=== PATIENT | female | born 1950 | race Caucasian/White ===

== ENCOUNTER → 2018-08-02 | Outpatient (CLI) | payer MEDICARE ==
--- NOTE | 2018-08-02 12:39 | BD ---
EXAMINATION TYPE: Axial Bone Density DATE OF EXAM: 08/02/2018 COMPARISON: NONE CLINICAL HISTORY: screening osteoporosis Height: 5'1 Weight: 228 FRAX RISK QUESTIONS: History of Fracture in Adulthood: y Secondary Osteoporosis: RISK FACTORS HISTORY OF: Diet low in dairy products/other sources of calcium: y Postmenopausal woman: y MEDICATIONS: Additional Medications: blood pressure Additional History: EXAM MEASUREMENTS: Bone mineral densitometry was performed using the [employer] System. Bone mineral density as measured about the Lumbar spine is: ----- L1-L4(G/cm2): 1.145 T Score Values are as follows: ----- L2: -0.5 ----- L3: 0.4 ----- L4: 0.0 ----- L1-L4:-0.3 Bone mineral density about the R hip (g/cm2): 0.786 Bone mineral density about the L hip (g/cm2): 0.795 T Score values are as follows: -----R Neck: -1.8 -----L Neck: -1.7 -----R Total: -1.2 -----L Total: -1.0 IMPRESSION: Osteopenia (T Score between -2.5 and -1) at femoral neck level in both hips. There is slightly increased risk of fracture and the patient may be considered for treatment. Re-Screen 2-5 years. NOTE: T-SCORE=SD OF THE YOUNG ADULT MEAN.
--- NOTE | 2018-08-04 09:10 | MM ---
Reason for exam: screening (asymptomatic). Last mammogram was performed 5 years and 7 months ago. History: Patient is postmenopausal. Physical Findings: A clinical breast exam by your physician is recommended on an annual basis and results should be correlated with mammographic findings. MG 3D Screening Mammo W/Cad Bilateral CC and MLO view(s) were taken. Prior study comparison: January 17, 2013, mammogram, performed at [facility]. There are scattered fibroglandular densities. Regional round calcifications left upper outer quadrant minimally increased. No suspicious clustered calcifications. No significant changes when compared with prior studies. ASSESSMENT: Benign, BI-RAD 2 RECOMMENDATION: Routine screening mammogram of both breasts in 1 year.
== END | disposition home or self-care (01) ==
LOC: RADMAMWWP 10:18
PROVIDERS: ATTEND Family Medicine
DX: Z12.31 Encounter for screening mammogram for malignant neoplasm of breast (principal); Z13.820 Encounter for screening for osteoporosis; M85.851 Other specified disorders of bone density and structure, right thigh; M85.852 Other specified disorders of bone density and structure, left thigh
CPT/HCPCS: 77063; 77067; 77080

== ENCOUNTER → 2019-04-13 | Outpatient (CLI) | payer MEDICARE ==
--- NOTE | 2019-04-13 15:54 | XR ---
EXAMINATION TYPE: XR AC joint BILAT DATE OF EXAM: 04/13/2019 COMPARISON: NONE HISTORY: M25.511. Right shoulder pain TECHNIQUE: Nonweightbearing and weightbearing views of the AC joints are submitted bilaterally. FINDINGS: AC joints are symmetric with weightbearing and nonweightbearing. No fracture or subluxation seen. No osseous lesions evident. Upper lungs appear to be clear. IMPRESSION: Unremarkable study.
== END | disposition home or self-care (01) ==
LOC: RADXRMAIN 10:21
PROVIDERS: ATTEND Family Medicine
DX: M25.511 Pain in right shoulder (principal)
CPT/HCPCS: 73050

== ENCOUNTER → 2019-04-25 | Outpatient (CLI) | payer MEDICARE ==
--- NOTE | 2019-04-25 15:31 | US ---
EXAMINATION TYPE: US extremity nonvasc mass RT DATE OF EXAM: 04/25/2019 COMPARISON: NONE CLINICAL HISTORY: M25.5 PAIN IN LIMB. Pt states pain/lump right medial arm near antecubital fossa Right medial arm scanned where pt has pain and palpable near antecubital fossa, no fluid collection s were visualized Please note that muscle or tendon tear scan could not be performed at this facility Patent compressible basilic vein. Normal subcutaneous and muscular tissue on images saved. IMPRESSION: As above.
== END | disposition home or self-care (01) ==
LOC: RADUSWWP 14:22
PROVIDERS: ATTEND Family Medicine
DX: M25.511 Pain in right shoulder (principal); Z88.5 Allergy status to narcotic agent; Z88.6 Allergy status to analgesic agent

== ENCOUNTER 2019-04-30 11:37 | Emergency (ER) | payer MEDICARE ==
[2019-04-30 11:54] VITALS: TEMP 98.1
[2019-04-30 12:04] VITALS: RESP 18
[2019-04-30] MEDS ORDERED: IPRATROPIUM-ALBUTEROL 3 ML NEB INHALATION STA (12:23)
--- NOTE | 2019-04-30 12:26 | ED ---
General Adult HPI - General Chief complaint: Upper Respiratory Infection Stated complaint: SOB Time Seen by Provider: 04/30/19 12:18 Source: patient, family, RN notes reviewed Mode of arrival: ambulatory Limitations: no limitations - History of Present Illness Initial comments: Patient is a pleasant 69-year-old female presenting to the emergency department with difficulty in breathing. Onset of symptoms was 6 days ago. Patient does have cough without productive sputum. Patient feels short of breath. No leg pain or leg swelling. No history of similar symptoms previously. No history of any lung disease such as COPD or asthma. Patient did see her doctor prior to arrival and was recommended come to the emergency department. Symptoms do worse n with exertion. - Related Data Home Medications Medication Instructions Recorded Confirmed Atenolol [Tenormin] 25 mg PO DAILY 04/30/19 04/30/19 Hydrochlorothiazide [Hydrodiuril] 12.5 mg PO DAILY 04/30/19 04/30/19 Phentermine HCl [Adipex-P] 37.5 mg PO DAILY 04/30/19 04/30/19 Previous Rx's Medication Instructions Recorded Albuterol Inhaler [Ventolin Hfa 2 puff INHALATION Q4HR PRN #1 04/30/19 Inhaler] inhaler Azithromycin [Zithromax Z-pack] 250 mg PO DIRECTED #6 tab 04/30/19 predniSONE 20 mg PO BID #10 tab 04/30/19 Allergies Allergy/AdvReac Type Severity Reaction Status Date / Time codeine Allergy Rash/Hives Verified 04/30/19 13:51 naproxen [From Naprosyn] Allergy Rash/Hives Verified 04/30/19 13:51 Review of Systems ROS Statement: Those systems with pertinent positive or pertinent negative responses have been documented in the HPI. ROS Other: All systems not noted in ROS Statement are negative. Constitutional: Reports: fever (Patient believes she may have had a fever at some point.) Eyes: Denies: eye pain ENT: Denies: ear pain Respiratory: Reports: as per HPI, cough, dyspnea Cardiovascular: Denies: chest pain Endocrine: Reports: fatigue Gastrointestinal: Denies: abdominal pain Genitourinary: Denies: dysuria Musculoskeletal: Denies: back pain Skin: Denies: rash Neurological: Denies: weakness Past Medical History Past Medical History: Hypertension History of Any Multi-Drug Resistant Organisms: None Reported Past Surgical History: Orthopedic Surgery Additional Past Surgical History / Comment(s): EYE SURGERY, R arm, L ankle Past Psychological History: No Psychological Hx Reported Smoking Status: Never smoker Past Alcohol Use History: Occasional Past Drug Use History: None Reported General Exam Limitations: no limitations General appearance: alert Head exam: Present: normocephalic Eye exam: Present: normal appearance, PERRL ENT exam: Present: normal oropharynx Neck exam: Present: normal inspection Respiratory exam: Present: wheezes, rales Cardiovascular Exam: Present: regular rate, normal rhythm Expanded Peripheral pulses: 2+: Radial (R), Radial (L), Dorsalis Pedis (R), Dorsalis Pedis (L) GI/Abdominal exam: Present: soft. Absent: tenderness Extremities exam: Present: normal inspection. Absent: pedal edema, calf tenderness Neurological exam: Present: alert Psychiatric exam: Present: normal affect, normal mood Skin exam: Present: normal color Course Vital Signs 04/30/19 04/30/19 04/30/19 11:49 12:01 12:03 Temperature 98.1 F Pulse Rate 74 72 Respiratory 18 22 18 Rate Blood Pressure 140/81 142/102 O2 Sat by Pulse 94 L 94 L Oximetry 04/30/19 04/30/19 04/30/19 12:33 12:38 13:02 Temperature Pulse Rate 70 76 78 Respiratory 18 Rate Blood Pressure 136/77 O2 Sat by Pulse 96 Oximetry 04/30/19 13:45 Temperature Pulse Rate 78 Respiratory 18 Rate Blood Pressure 133/77 O2 Sat by Pulse 92 L Oximetry EKG Findings - EKG Comments: EKG Findings:: Normal sinus rhythm 68. HI 122. QRS 92. QT 432. QTC 459. Left axis. Normal QRS. Nonspecific T waves. Medical Decision Making - Medical Decision Making Patient reevaluated and significantly improved. Patient still has some wheezing however states she is breathing much better and requests discharge home. Pulse ox 96% on room air. Vital signs stable. Patient states previously with this she received antibiotics and inhaler and steroids and did much better. Patient is agreeable to close follow-up with primary care physician. - Lab Data Result diagrams: 04/30/19 13:21 04/30/19 13:21 Lab Results 04/30/19 04/30/19 04/30/19 Range/Units 13:21 13:21 13:21 WBC 9.4 (3.8-10.6) k/uL RBC 4.82 (3.80-5.40) m/uL Hgb 15.1 (11.4-16.0) gm/dL Hct 45.2 (34.0-46.0) % MCV 93.7 (80.0-100.0) fL MCH 31.3 (25.0-35.0) pg MCHC 33.4 (31.0-37.0) g/dL RDW 12.1 (11.5-15.5) % Plt Count 217 (150-450) k/uL Neutrophils % 72 % Lymphocytes % 17 % Monocytes % 4 % Eosinophils % 2 % Basophils % 1 % Neutrophils # 6.8 (1.3-7.7) k/uL Lymphocytes # 1.6 (1.0-4.8) k/uL Monocytes # 0.4 (0-1.0) k/uL Eosinophils # 0.2 (0-0.7) k/uL Basophils # 0.1 (0-0.2) k/uL PT 10.1 (9.0-12.0) sec INR 0.9 (<1.2) APTT 24.4 (22.0-30.0) sec D-Dimer (<0.60) mg/L FEU Sodium 137 (137-145) mmol/L Potassium 3.6 (3.5-5.1) mmol/L Chloride 98 (98-107) mmol/L Carbon Dioxide 28 (22-30) mmol/L Anion Gap 11 mmol/L BUN 11 (7-17) mg/dL Creatinine 0.84 (0.52-1.04) mg/dL Est GFR (CKD-EPI)AfAm 83 (>60 ml/min/1.73 sqM) Est GFR (CKD-EPI)NonAf 72 (>60 ml/min/1.73 sqM) Glucose 131 H (74-99) mg/dL Calcium 9.3 (8.4-10.2) mg/dL Total Bilirubin 0.7 (0.2-1.3) mg/dL AST 22 (14-36) U/L ALT 19 (9-52) U/L Alkaline Phosphatase 93 (38-126) U/L Troponin I (0.000-0.034) ng/mL NT-Pro-B Natriuret Pep pg/mL Total Protein 7.1 (6.3-8.2) g/dL Albumin 4.1 (3.5-5.0) g/dL 04/30/19 04/30/19 04/30/19 Range/Units 13:21 13:21 13:21 WBC (3.8-10.6) k/uL RBC (3.80-5.40) m/uL Hgb (11.4-16.0) gm/dL Hct (34.0-46.0) % MCV (80.0-100.0) fL MCH (25.0-35.0) pg MCHC (31.0-37.0) g/dL RDW (11.5-15.5) % Plt Count (150-450) k/uL Neutrophils % % Lymphocytes % % Monocytes % % Eosinophils % % Basophils % % Neutrophils # (1.3-7.7) k/uL Lymphocytes # (1.0-4.8) k/uL Monocytes # (0-1.0) k/uL Eosinophils # (0-0.7) k/uL Basophils # (0-0.2) k/uL PT (9.0-12.0) sec INR (<1.2) APTT (22.0-30.0) sec D-Dimer 0.53 (<0.60) mg/L FEU Sodium (137-145) mmol/L Potassium (3.5-5.1) mmol/L Chloride (98-107) mmol/L Carbon Dioxide (22-30) mmol/L Anion Gap mmol/L BUN (7-17) mg/dL Creatinine (0.52-1.04) mg/dL Est GFR (CKD-EPI)AfAm (>60 ml/min/1.73 sqM) Est GFR (CKD-EPI)NonAf (>60 ml/min/1.73 sqM) Glucose (74-99) mg/dL Calcium (8.4-10.2) mg/dL Total Bilirubin (0.2-1.3) mg/dL AST (14-36) U/L ALT (9-52) U/L Alkaline Phosphatase (38-126) U/L Troponin I <0.012 (0.000-0.034) ng/mL NT-Pro-B Natriuret Pep 478 pg/mL Total Protein (6.3-8.2) g/dL Albumin (3.5-5.0) g/dL - Radiology Data Radiology results: image reviewed (Chest x-ray concerning for bronchitis) Disposition Clinical Impression: Bronchitis Disposition: HOME SELF-CARE Condition: Stable Additional Instructions: Please follow-up with primary care physician in the next 24-48 hours for recheck. Return for any difficulty in breathing, fevers, worsening symptoms or any other concerns Prescription sent to [facility] pharmacy Prescriptions: predniSONE 20 mg PO BID #10 tab Albuterol Inhaler [Ventolin Hfa Inhaler] 2 puff INHALATION Q4HR PRN #1 inhaler PRN Reason: Dyspnea Azithromycin [Zithromax Z-pack] 250 mg PO DIRECTED #6 tab Is patient prescribed a controlled substance at d/c from ED?: No Referrals: Kian Salgado MD [Primary Care Provider] - 1-2 days Time of Disposition: 14:45
[2019-04-30 13:03] VITALS: PULSE 78
--- NOTE | 2019-04-30 13:13 | XR ---
EXAMINATION TYPE: XR chest 2V DATE OF EXAM: 04/30/2019 COMPARISON: NONE HISTORY: Difficulty breathing. Cough and wheeze TECHNIQUE: Frontal and lateral views of the chest are obtained. FINDINGS: Diffuse peribronchial cuffing. Patchy left basilar opacity is seen on the frontal view only and does not persist on the lateral. There is no focal air space opacity, pleural effusion, or pneu mothorax seen. The cardiac silhouette size is upper limits of normal. The osseous structures are i ntact. IMPRESSION: Peribronchial cuffing suggests bronchitis. Patchy left basilar opacity on the frontal vi ew only suggests atelectasis.
[2019-04-30 13:38] LABS: Basophils # (A) 0.1 k/uL (0-0.2); Basophils % (A) 1 %; Eosinophils # (A) 0.2 k/uL (0-0.7); Eosinophils % (A) 2 %; HCT 45.2 % (34.0-46.0); HGB 15.1 gm/dL (11.4-16.0); Lymphocytes # (A) 1.6 k/uL (1.0-4.8); Lymphocytes % (A) 17 %; MCH 31.3 pg (25.0-35.0); MCHC 33.4 g/dL (31.0-37.0); MCV 93.7 fL (80.0-100.0); Mean Platelet Volume 7.5; Monocytes # (A) 0.4 k/uL (0-1.0); Monocytes % (A) 4 %; Neutrophils # (A) 6.8 k/uL (1.3-7.7); Neutrophils % (A) 72 %; Platelet Count 217 k/uL (150-450); RBC 4.82 m/uL (3.80-5.40); RDW 12.1 % (11.5-15.5); WBC 9.4 k/uL (3.8-10.6)
[2019-04-30 13:46] VITALS: BP 133/77
[2019-04-30 13:46] LABS: Albumin 4.1 g/dL (3.5-5.0); Calcium 9.3 mg/dL (8.4-10.2); Potassium 3.6 mmol/L (3.5-5.1); Total Bilirubin 0.7 mg/dL (0.2-1.3); Total Protein 7.1 g/dL (6.3-8.2)
[2019-04-30 13:56] LABS: INR 0.9 (<1.2); Partial Thromboplastin Time 24.4 sec (22.0-30.0); Prothrombin Time 10.1 sec (9.0-12.0)
== END 2019-04-30 14:56 | disposition home or self-care (01) ==
LOC: EC 11:37
DX: J40 Bronchitis, not specified as acute or chronic (principal); I10 Essential (primary) hypertension; Z88.5 Allergy status to narcotic agent; Z88.6 Allergy status to analgesic agent; Z79.899 Other long term (current) drug therapy
CPT/HCPCS: 36415; 71046; 80053; 83880; 84484; 85025; 85379; 85610; 85730; 93005; 94640; 99285

== ENCOUNTER → 2019-07-20 | Outpatient (CLI) | payer MEDICARE ==
--- NOTE | 2019-07-20 11:12 | XR ---
EXAMINATION TYPE: XR chest 2V DATE OF EXAM: 07/20/2019 COMPARISON: 04/30/19 HISTORY: Shortness of breath TECHNIQUE: Frontal and lateral views of the chest are obtained. FINDINGS: Scattered senescent parenchymal changes noted. Hyperinflation compatible with COPD. No evidence for infiltrate. No evidence for atelectasis. Heart size is stable. Mediastinal structures are stable and grossly unremarkable. No evidence for hilar prominence. Degenerative changes dorsal spine. IMPRESSION: 1. No evidence for acute pulmonary disease.
== END | disposition home or self-care (01) ==
LOC: RADXRMAIN 10:47
PROVIDERS: ATTEND Family Medicine
DX: R05 Cough (principal); R06.02 Shortness of breath; R50.9 Fever, unspecified
CPT/HCPCS: 71046; 87502

== ENCOUNTER → 2020-07-28 | Outpatient (CLI) | payer MEDICARE ==
--- NOTE | 2020-07-28 14:47 | XR ---
EXAMINATION TYPE: XR chest 2V DATE OF EXAM: 07/28/2020 COMPARISON: Chest x-ray July 20, 2019. HISTORY: Cough for one year. TECHNIQUE: Frontal and lateral views of the chest are obtained. FINDINGS: There is some chronic parenchymal change without suspicious new focal air space opacity, p leural effusion, or pneumothorax seen. The cardiac silhouette size is stable and upper limits of nor mal. The osseous structures are intact. IMPRESSION: No new acute pulmonary process. No significant change from prior.
== END ==
LOC: RADXRMAIN 13:27
PROVIDERS: ATTEND Otolaryngology
DX: R05 Cough (principal)
CPT/HCPCS: 71046

== ENCOUNTER → 2020-09-09 | Outpatient (CLI) | payer MEDICARE ==
--- NOTE | 2020-09-10 10:05 | MM ---
Reason for exam: screening (asymptomatic). Last mammogram was performed 2 years and 1 month ago. History: Patient is postmenopausal. Physical Findings: A clinical breast exam by your physician is recommended on an annual basis and results should be correlated with mammographic findings. MG 3D Screening Mammo W/Cad Bilateral CC and MLO view(s) were taken. Prior study comparison: August 02, 2018, bilateral MG 3d screening mammo w/cad. There are scattered fibroglandular densities. There are benign appearing round calcifications bilaterally. There is grouped distinct calcifications in the left breast middle posterior depth upper outer quadrant on CC 25/59 and MLO 30/71. This finding is changed when compared with previous exams. ASSESSMENT: Incomplete: need additional imaging evaluation, BI-RAD 0 RECOMMENDATION: Special view mammogram of the left breast. [facility] will attempt to contact patient to return for supplemental views.
== END | disposition home or self-care (01) ==
LOC: RADMAMWWP 10:54
PROVIDERS: ATTEND Family Medicine
DX: Z12.31 Encounter for screening mammogram for malignant neoplasm of breast (principal); Z78.0 Asymptomatic menopausal state
CPT/HCPCS: 77063; 77067

== ENCOUNTER → 2020-09-11 | Outpatient (CLI) | payer MEDICARE ==
--- NOTE | 2020-09-11 10:59 | MM ---
Reason for exam: additional evaluation requested from abnormal screening. Last mammogram was performed less than 1 month ago. History: Patient is postmenopausal. Physical Findings: Nurse did not find any significant physical abnormalities on exam. MG 3D Work Up W/Cad LT CC with magnification, LM with magnification, and LM view(s) were taken of the left breast. Prior study comparison: September 09, 2020, bilateral MG 3d screening mammo w/cad. August 02, 2018, bilateral MG 3d screening mammo w/cad. There are scattered fibroglandular densities. Finding: There are grouped/clustered, fine calcifications in the upper outer quadrant, middle position of the left breast. These fine calcifications may be increasing from comparison. No significant changes in finding since August 02, 2018. These results were verbally communicated with the patient and result sheet given to the patient on 09/11/20. ASSESSMENT: Suspicious, BI-RAD 4 RECOMMENDATION: Stereotactic core biopsy of the left breast. Called Dr. Moreno's office with mammographic findings and has scheduled an appointment for the patient for 10/29/20 at 4:[address] Diaz. Biopsy scheduled for 09/29/20 at 8:00. PRELIMINARY REPORT CALLED AND FAXED TO DR. DIAZ ON 09/11/20.
== END | disposition home or self-care (01) ==
LOC: RADMAMWWP 08:55
PROVIDERS: ATTEND Family Medicine
DX: R92.1 Mammographic calcification found on diagnostic imaging of breast (principal)
CPT/HCPCS: 77065; G0279; 77061

== ENCOUNTER → 2020-09-29 | Day surgery (SDC) | payer MEDICARE ==
[2020-09-29 07:16] VITALS: RESP 16
[2020-09-29 09:03] VITALS: BP 136/72; PULSE 87; TEMP 97.7
--- NOTE | 2020-09-29 09:35 | MM ---
EXAMINATION TYPE: MG stereo VAD BX LT DATE OF EXAM: 09/29/2020 COMPARISON: 09/11/2020, 09/09/2020, 08/02/2018 CLINICAL HISTORY: Request for calcifications biopsied within the left breast upper outer quadrant TECHNIQUE: Stereotactic guided core biopsy of left breast. FINDINGS: The procedure of stereotactic guided core biopsy was explained to the patient. Benefits, alternatives, and risks were discussed. An informed consent was then obtained. The [facility] pathway for biopsy was chosen. Shortness pathway was lateral approach. I performed the localization, then surgeon, Dr. Delarosa performed the remainder of the procedure. A vacuum assisted biopsy gun was used to obtain multiple core samples. The patient tolerated the procedure well without any immediate complication. The patient was kept in the radiology department for short stay after the procedure and then discharged home in stable condition. Targeted calcifications are identified in specimen mammogram. Post biopsy mammogram shows the clip to appear in satisfactory position relative to the targeted area of concern on the preprocedure images. IMPRESSION: SUCCESSFUL, UNCOMPLICATED STEREOTACTIC GUIDED CORE BIOPSY OF AREA OF CONCERN IN THE left BREAST, FULL PATHOLOGY RESULTS TO FOLLOW. Pathology Results: Benign LEFT BREAST, CORE BIOPSY: Focal fibroadenomatoid stromal hyperplasia with microcalcification and focal columnar cell change. Recommendation Follow up mammogram of the left breast in 6 months. FAIZA
== END ==
LOC: RADMAMWWP 07:02
PROVIDERS: ATTEND Surgery
DX: D24.2 Benign neoplasm of left breast (principal); N62 Hypertrophy of breast; R92.0 Mammographic microcalcification found on diagnostic imaging of breast; R92.8 Other abnormal and inconclusive findings on diagnostic imaging of breast; Z88.6 Allergy status to analgesic agent; Z88.5 Allergy status to narcotic agent
CPT/HCPCS: 88305; 19081; A4648; J2001

== ENCOUNTER → 2021-04-02 | Outpatient (CLI) | payer MEDICARE ==
--- NOTE | 2021-04-02 11:42 | MM ---
Reason for exam: follow-up at short interval from prior study. Last mammogram was performed 7 months ago. History: Patient is postmenopausal. Benign MG stereo VAD BX LT of the left breast, September 29, 2020. Physical Findings: Nurse did not find any significant physical abnormalities on exam. MG 3D Diag Mammo W/Cad LT CC and MLO view(s) were taken of the left breast. Prior study comparison: September 11, 2020, left breast MG 3d work up w/cad LT. September 09, 2020, bilateral MG 3d screening mammo w/cad. August 02, 2018, bilateral MG 3d screening mammo w/cad. There are scattered fibroglandular densities. Previous mammotome biopsy in the left breast. There is chronic nodularity in the left breast. No significant new findings when compared with previous films. These results were verbally communicated with the patient and result sheet given to the patient on 04/02/21. ASSESSMENT: Benign, BI-RAD 2 RECOMMENDATION: Return to routine screening mammogram schedule for both breasts. Back on schedule for August 2021.
== END | disposition home or self-care (01) ==
LOC: RADMAMWWP 11:00
PROVIDERS: ATTEND Surgery
DX: N64.89 Other specified disorders of breast (principal); Z78.0 Asymptomatic menopausal state
CPT/HCPCS: 77065; G0279; 77061

== ENCOUNTER → 2022-04-09 | Outpatient (CLI) | payer MEDICARE ==
--- NOTE | 2022-04-09 12:32 | BD ---
EXAMINATION TYPE: Axial Bone Density DATE OF EXAM: 04/09/2022 COMPARISON: PREVIOUS STUDY FROM 08/02/2018 NOT AVAILABLE CLINICAL HISTORY: 71 years year old Female. ICD-10 CODE: Z78.0 MENOPAUSAL STATE Height: 60.5 IN Weight: 214 LBS FRAX RISK QUESTIONS: Family History (Parent hip fracture): YES MOTHER History of Fracture in Adulthood: YES CERVICAL AGE 40 RISK FACTORS HISTORY OF: Active: YES Diet low in dairy products/other sources of calcium: YES Postmenopausal woman: AGE 49 Lost more than 2 inches in height since high school: YES 3" MEDICATIONS: Additional Medications: METHOTREXATE, FOLIC ACID, BLOOD PRESSURE MEDS EXAM MEASUREMENTS: Bone mineral densitometry was performed using the [employer] System. Bone mineral density as measured about the Lumbar spine is: ----- L1-L4(G/cm2): 1.174 T Score Values are as follows: ----- L1: 0.8 ----- L2: 0.0 ----- L3: -0.9 ----- L4: -0.1 ----- L1-L4: 0.0 Bone mineral density PREVIOUS STUDY FROM 08/02/2018 NOT AVAILABLE Bone mineral density about the R hip (g/cm2): 0.726 Bone mineral density about the L hip (g/cm2): 0.720 T Score values are as follows: -----R Neck: -2.2 -----L Neck: -2.3 -----R Total: -1.8 -----L Total: -1.8 Bone mineral density PREVIOUS STUDY FROM 08/02/2018 NOT AVAILABLE FRAX%s: The graph provided illustrates a 29.2 chance for a major osteoporotic fx and a 9.5 chance for the hips probability for fx in 10 years time. IMPRESSION: Osteopenia (T Score between -2.5 and -1). There is slightly increased risk of fracture and the patient may be considered for treatment. Re-Screen 2-5 years. NOTE: T-SCORE=SD OF THE YOUNG ADULT MEAN.
--- NOTE | 2022-04-12 10:16 | MM ---
Reason for Exam: Screening (asymptomatic). Last mammogram was performed 1 year(s) and 7 month(s) ago. Patient History: Menarche at age 13. First Full-Term at age 22. Left ovary removed at age 37. Postmenopausal. 09/29/2020, Benign Core Biopsy on the left side. Risk Values: Skylar 5 year model risk: 1.8%. NCI Lifetime model risk: 5.3%. Prior Study Comparison: 09/09/2020 Bilateral Screening Mammogram, [facility]. 09/11/2020 Left Diagnostic Mammogram, [facility]. 04/02/2021 Left Diagnostic Mammogram, [facility]. Tissue Density: There are scattered fibroglandular densities. Findings: Analyzed By CAD. In the biopsy clip left breast redemonstrated. There are scattered tiny benign-appearing round calcifications bilaterally redemonstrated. Benign-appearing bilateral axillary lymph nodes are noted. There is no suspicious new group of microcalcifications or new suspicious mass in either breast. Overall Assessment: Benign, BI-RAD 2 Management: Screening Mammogram of both breasts in 1 year. A clinical breast exam by your physician is recommended on an annual basis and results should be correlated with mammographic findings. Electronically signed and approved by: Devonte Reeves M.D.
== END | disposition home or self-care (01) ==
LOC: RADMAMWWP 09:25
PROVIDERS: ATTEND Family Medicine
DX: Z12.31 Encounter for screening mammogram for malignant neoplasm of breast (principal); M85.89 Other specified disorders of bone density and structure, multiple sites; Z78.0 Asymptomatic menopausal state; Z90.721 Acquired absence of ovaries, unilateral
CPT/HCPCS: 77063; 77067; 77080

== ENCOUNTER → 2023-07-06 | Outpatient (CLI) | payer MEDICARE ==
[2023-07-06 14:44] LABS: Partial Thromboplastin Time 23.8 sec (22.0-30.0)
[2023-07-06 17:13] LABS: INR 0.9 (<1.2); Prothrombin Time 10.4 sec (10.0-12.5)
[2023-07-07 02:39] LABS: HCT 42.3 % (37.2-46.3); HGB 13.5 g/dL (12.0-15.0); MCH 34.1 pg (27.0-32.0); MCHC 31.9 g/dL (32.0-37.0); MCV 106.8 FL (80.0-97.0); Mean Platelet Volume 11.9 FL (9.5-12.2); NRBC Per 100 WBC 0 X 10*3/uL (0.00-0.01); Platelet Count 200 X 10*3/uL (140-440); RBC 3.96 X 10*6/uL (4.10-5.20); RDW 13.2 % (11.5-14.5); WBC 8.15 X 10*3/uL (4.50-10.00)
[2023-07-07 03:18] LABS: ALT 16 U/L (8-44); AST 24 U/L (13-35); Albumin/Globulin Ratio 1.82 Ratio (1.60-3.17); Alkaline Phosphatase 79 U/L (41-126); Blood Urea Nitrogen 15.3 mg/dL (9.0-27.0); Carbon Dioxide 26.6 mmol/L (21.6-31.8); Chloride 102 mmol/L (96-109); Globulin 2.2 g/dL (1.6-3.3); Glucose 127 mg/dL (70-110); Potassium 4.4 mmol/L (3.5-5.5); Sodium 137 mmol/L (135-145); Total Bilirubin 0.5 mg/dL (0.3-1.2); Total Protein 6.2 g/dL (6.2-8.2)
== END | disposition home or self-care (01) ==
LOC: LABPAT 14:12
PROVIDERS: ATTEND Orthopaedic Surgery Sports Medicine
DX: Z01.812 Encounter for preprocedural laboratory examination (principal); Z22.322 Carrier or suspected carrier of Methicillin resistant Staphylococcus aureus; M17.11 Unilateral primary osteoarthritis, right knee
CPT/HCPCS: 36415; 80053; 85027; 85610; 85730; 87070

== ENCOUNTER → 2023-08-04 | Outpatient (CLI) | payer MEDICARE ==
[2023-08-04 12:48] LABS: INR 0.9 (<1.2); Partial Thromboplastin Time 23.6 sec (22.0-30.0); Prothrombin Time 10.3 sec (10.0-12.5)
[2023-08-04 16:09] LABS: ALT 9 U/L (8-44); AST 17 U/L (13-35); Albumin/Globulin Ratio 1.67 Ratio (1.60-3.17); Alkaline Phosphatase 98 U/L (41-126); BUN/Creat Ratio 17.38 Ratio (12.00-20.00); Blood Urea Nitrogen 13.9 mg/dL (9.0-27.0); Calcium 9.7 mg/dL (8.7-10.3); Carbon Dioxide 28.4 mmol/L (21.6-31.8); Chloride 105 mmol/L (96-109); Globulin 2.4 g/dL (1.6-3.3); Glucose 107 mg/dL (70-110); Potassium 4.8 mmol/L (3.5-5.5); Sodium 143 mmol/L (135-145); Total Bilirubin 0.6 mg/dL (0.3-1.2); Total Protein 6.4 g/dL (6.2-8.2)
[2023-08-04 17:02] LABS: HCT 43.7 % (37.2-46.3); HGB 13.8 g/dL (12.0-15.0); MCH 32.7 pg (27.0-32.0); MCHC 31.6 g/dL (32.0-37.0); MCV 103.6 FL (80.0-97.0); Mean Platelet Volume 12.7 FL (9.5-12.2); NRBC Per 100 WBC 0 X 10*3/uL (0.00-0.01); Platelet Count 191 X 10*3/uL (140-440); RBC 4.22 X 10*6/uL (4.10-5.20); RDW 13.1 % (11.5-14.5); WBC 10.81 X 10*3/uL (4.50-10.00)
== END | disposition home or self-care (01) ==
LOC: LABPAT 11:30
PROVIDERS: ATTEND Orthopaedic Surgery Sports Medicine
DX: Z01.812 Encounter for preprocedural laboratory examination (principal); Z22.322 Carrier or suspected carrier of Methicillin resistant Staphylococcus aureus; M17.11 Unilateral primary osteoarthritis, right knee
CPT/HCPCS: 36415; 80053; 85027; 85610; 85730; 87070

== ENCOUNTER 2023-08-18 05:41 | Observation (INO) | payer MEDICARE ==
[2023-08-15 11:09] VITALS: BMI 38.4
[~2023-08-18 05:41] MED LIST: MELOXICAM 7.5 MG TAB PO PRN; TRANEXAMIC 1,000 MG/100ML-NACL 1,000 MG in SALINE 1 100ML.BAG IVPB PRN
[2023-08-18] MEDS: LACTATED RINGERS 1,000 ML IV ONE ×2 (05:58→08:04)
[2023-08-18] MEDS: GABAPENTIN 300 MG CAP PO PRN (06:30)
[2023-08-18] MEDS: ACETAMINOPHEN TAB 500 MG TAB PO PRN (06:30)
[2023-08-18] MEDS: ONDANSETRON 4 MG/2 ML VIAL IVP PRN ×2 (06:30→20:18)
[2023-08-18] MEDS: DEXAMETHASONE SOD PHOSPHATE 4 MG/ML 1 ML VIAL IVP ONE (06:30)
[2023-08-18] MEDS: MIDAZOLAM 2 MG/2 ML VIAL IVP ONE (07:00)
[2023-08-18] MEDS: fentaNYL (PF) 50 MCG/ML 2 ML AMP IVP ONE (07:00)
[2023-08-18] MEDS ORDERED: TRANEXAMIC 1,000 MG/100ML-NACL PREMIX BAG ONE (07:13)
[2023-08-18] MEDS ORDERED: MIDAZOLAM 2 MG/2 ML VIAL ONE (07:13)
[2023-08-18] MEDS ORDERED: SODIUM CHLORIDE 0.9% (PF) 10 ML VIAL ONE (07:13)
[2023-08-18] MEDS ORDERED: ROPIVACAINE 5 MG/ML 30 ML VIAL ONE (07:13)
[2023-08-18] MEDS ORDERED: ePHEDrine 50 MG/ML 1 ML VIAL ONE (07:13)
[2023-08-18] MEDS ORDERED: PROPOFOL 10 MG/ML 20 ML VIAL IV ONE (07:13)
[2023-08-18] MEDS ORDERED: fentaNYL (PF) 50 MCG/ML 2 ML AMP ONE (07:13)
[2023-08-18] MEDS ORDERED: HYDROmorphone 0.5 MG/0.5 ML SYRINGE IVP PRN ×2 (07:17)
[2023-08-18] MEDS ORDERED: NALOXONE 0.4 MG/ML 1 ML VIAL IV PRN (07:17)
[2023-08-18] MEDS ORDERED: MAGNESIUM HYDROXIDE 2,400 MG/30 ML CUP PO PRN (07:17)
[2023-08-18] MEDS ORDERED: ACETAMINOPHEN TAB 325 MG TAB PO PRN (07:17)
[2023-08-18] MEDS ORDERED: bisacodyL 10 MG SUPP RECTAL PRN (07:17)
[2023-08-18] MEDS ORDERED: NA PHOS,M-B/NA PHOS,DI-BA 133 ML ENEMA RECTAL PRN (07:17)
[2023-08-18] MEDS: ceFAZolin 3,000 MG in SODIUM CHLORIDE 0.9% IRRIGATIO 3,000 ML IRRIGATION ONE (07:51)
[2023-08-18] MEDS: ROPIVACAINE 1,100 MG, SODIUM CHLORIDE 0.9% 500 ML 330 ML, EMPTY PAIN BALL 1 EACH MISCELLANE PRN (09:47)
--- NOTE | 2023-08-18 10:46 | OP ---
OPERATIVE REPORT DATE OF SERVICE : 08/18/2023 [facility] REGULATOR: Travis Stewart PA-C. PREOPERATIVE DIAGNOSIS: Right knee osteoarthrosis. POSTOPERATIVE DIAGNOSIS: Right knee osteoarthrosis. OPERATION: Right total knee arthroplasty. ANESTHESIA: Spinal with sedation. ESTIMATED BLOOD LOSS: 100 mL. TOURNIQUET TIME: 55 minutes at 250 mmHg. COMPLICATIONS: None apparent. DRAINS: None. DISPOSITION: Postanesthesia care unit. INDICATIONS: Mayi is a very pleasant 73-year-old female with longstanding history of right knee pain. History and physical examination are consistent with advanced right knee osteoarthrosis. She has been through significant operative management up to this point. Further treatment options were discussed, and she decided to go forward with a right total knee arthroplasty. The risks of procedure were discussed with her in detail. These risks include, but are not limited to risk of infection, nerve damage, bleeding, pain, and a small risk of deep vein thrombosis which could lead to fatal pulmonary embolism. There is also small risk of loosening of the implant, which could require revision operation. The patient understands these risks. All of her questions were answered to her satisfaction. An appropriate informed consent was obtained. DESCRIPTION OF PROCEDURE: The patient was identified in the preoperative holding area. Surgical site was marked by both the patient and myself. She was given 2 g of Ancef IV for prophylactic purposes. She was then transported to the operative suite. She was placed supine on the operating room table. A spinal anesthetic was then administered and dosed per the Anesthesia Department without apparent complication. An examination under anesthesia was then performed. The patient was 2 to 3 degrees shy of full extension. She had 95 degrees of flexion in the medial collateral ligament, lateral collateral ligament, and posterior cruciate ligaments were stable. A tourniquet was then placed high on the right upper thigh well-padded in preparation for surgery. The patient's right lower extremity was then prepped and draped in usual sterile fashion. Standard surgical pause was undertaken to ensure that we were operating the correct site and that appropriate preoperative antibiotics had been given. All staff in the room were in agreement, and we proceeded. The outlines of the patella were marked with a surgical pen. A planned 12 cm vertical incision centered over the patella was marked with a surgical pen. Legs were then exsanguinated with an Esmarch dressing. The knee was then flexed, and tourniquet was inflated to 250 mmHg. The total tourniquet time for the procedure was 55 minutes. Incision was then made with a 10-blade scalpel. Dissection was carried down sharply overlying fascia. Great care was taken to minimize the skin flaps. The knee was then exposed using a standard medial parapatellar approach. A small cuff of quadriceps tendon was then left for suturing. She was in a bit of varus preoperatively. A standard medial release was then made. Superficial medial collateral ligament was dissected off the bone around to the posterior aspect of the proximal tibia. The medial meniscus was then excised as well. The lateral meniscus was also released anteriorly. The leg was then externally rotated. The patella was everted. The knee was flexed. Retractors were then placed to protect the collateral ligaments. I then proceeded to remove the infrapatellar fat pad. This was excised sharply tangentially with fibers of the patellar tendon. I then proceeded to remove the peripheral osteophytes. This was done with a rongeur. I then proceeded with the distal femoral resection. She did have near full extension. A planned 9 mm resection was then done. The femoral canal was then entered in the midline of the femur approximately 10 mm anterior to the origin of the posterior cruciate ligament. The chelly was then advanced down the center of the femur and placed intramedullary. Based on the preoperative radiographs, the angle between the anatomic and mechanical axis of the femur was approximately 4 to 5 degrees. The valgus angle of the distal femoral cutting guide was then set at 4 degrees for the right knee. The distal femoral cutting guide was then advanced over the intramedullary chelly. This was seated firmly against the femur. Then, as mentioned, I planned to take 9 mm off the distal femur. The cutting block was then secured onto the femur with pins. The jig was then removed. The distal cut was made through the slot of the block. The pins were then removed and the distal femoral cutting block was removed. The accuracy of the distal femoral cuts was checked with 2 flat bars. I then proceeded with femoral sizing. Posterior referencing sizing guide was held firmly against the resected distal surface of the femur. The posterior condyles were resting on the posterior plane of the guide. The sizing stylus was then placed on the anterior femur. The size was measured as a size 8. I then assessed for femoral rotation. The plan was for 3 degrees of external rotation. Three degrees of external rotation was placed onto the jig. These holes were then marked. I then confirmed the rotation by 3 separate methods. This was done using epicondylar axis as well as Whitesides line and posterior referencing. It was deemed that the external rotation was proper. I then went forward with placement of the femoral cutting block. This was placed over the previously placed pin holes. The Soren wing was then placed on the anterior slots to ensure that we would not notch the anterior femur with the anterior femoral cut. I then proceeded with the anterior femoral cut. This was flushed with the anterior cortex of the femur. The posterior cuts were then made followed by the anterior chamfer cut, then the posterior chamfer cut. The cutting block was then removed. Throughout the resection, the collateral ligaments were protected with retractors. I then placed a trial size 8 femur. It was slightly wide, but the narrow fit very nicely, and it fit flush with the distal end of the femur. The drill hole was then made. I then proceeded with the tibial cut. I planned for cruciate-retaining knee. The guide was placed and set for varus and valgus and for slope. The height was set for approximately 2 mm resection from the medial tibial plateau, which was the lower side. I was happy with the alignment and the amount of resection. The cutting block was then pinned to the proximal tibia. The alignment chelly was removed. The proximal tibia was resected with a reciprocating saw. Again, this was done with retractors protecting the collateral ligaments as well as the posterior cruciate ligament. I then proceeded to evaluate the flexion and extension gaps. A 10 mm block was then placed. The flexion and extension gaps were equal. I then proceeded with resection of the posterior osteophytes. She has very minimal posterior osteophytes. This was done using a curved osteotome. This resected the posterior osteophytes, and the posterior capsular stripping was done off the posterior aspect of the femur at this time. The osteophytes were then removed. I then proceeded with resection of the patella. The thickness of the patella was measured using the caliper. The thickness was 22 mm. The thickness of the anticipated patellar dome was taken into account. Resection was then performed and confirmed to be equal in 4 quadrants using a caliper. Approximately 14 mm of bone remained after resection. A 29 x 8 standard patellar trial was then placed. The holes were drilled and the trial was then placed. I then proceeded with sizing the tibial plate. A size D tibial plate fit very nicely. I then placed a trial femur, the tibial tray, and the patellar button. A 10 mm trial tibial insert was also placed. The components fit very nicely. She had full extension and flexion. The extension and flexion gaps were equal and stable to both varus and valgus stress. The patella tracked appropriately. The tibial tray rotation was then marked with a Bovie. This was externally rotated properly. I then proceeded with tibial preparation. I first drilled the femoral holes and removed the femoral component. The tibial tray was then set for proper external rotation as well as medial lateral placement onto the tibia. It was then pinned into place. I then proceeded with punching the keel. I then decided to proceed with cementing of all of our components. The knee was thoroughly irrigated with sterile saline solution via pulse lavage. The lateral genicular artery was identified and cauterized. All blood was removed from the bone of the tibia, femur, and patella with pulse lavage. I then proceeded with cementing. Two packs of antibiotic bone cement prepared on the back table by the surgical attendant. I then proceeded with cementing the tibia first. The cement was impacted into the keel as well as deeply seated into the bone. A second coat of cement was then placed. The tibia was then impacted into place. Excess cement was removed with Sonal's and Joker's. I then proceeded with cementing of the femoral component. The femoral component was also cemented using standard technique. Excess cement was removed. A 10 mm trial insert was then placed into the knee. It was brought into full extension with a constant axial load placed until the cement had hardened. The patellar component was then cemented. This was held firmly with a compressive device until the cement had dried. When the cement had dried, the knee was taken out of extension. All excess cement was removed from around the prosthesis. I then trialed the knee with a 10 mm insert. Flexion and extension gaps were appropriate. The knee was stable. It came into full extension. I decided to go forward with the 10 mm Medial Congruent cross-linked cruciate-retaining tibial insert. Polyethylene was then placed on the tibial tray and locked into place. The knee was then reduced. The knee was again further irrigated with sterile saline solution and antibiotic added. The tourniquet was then deflated. Total tourniquet time for the procedure was 55 minutes at 250 mmHg. Final components were Manasa Persona size 8 narrow cruciate-retaining femoral component, size D tibial tray, a 10 mm Medial Congruent cruciate-retaining polyethylene insert, and a 29 x 8 mm patella. I then proceeded with closure. Again, the knee was thoroughly irrigated. The quadriceps tendon and the medial retinaculum were reapproximated with #2 Ethibond suture. The extensor mechanism was then closed with a running #2 Quill suture. Subcutaneous tissues were closed with 2-0 Vicryl interrupted suture. The skin was closed with a running 3-0 Quill suture. Dermabond was applied to the incision. Sterile compressive dressings were applied. All sponge and needle counts were deemed correct prior to closure. The patient tolerated the procedure without apparent complication. She was transferred to the recovery room in stable condition. MMODL / IJN: [id number] /
[2023-08-18] MEDS: HYDROmorphone 0.5 MG/0.5 ML SYRINGE IVP ONE (11:00)
--- NOTE | 2023-08-18 11:10 | XR ---
EXAMINATION TYPE: XR knee limited RT DATE OF EXAM: 08/18/2023 10:20 AM CLINICAL INDICATION:Female, 73 years old with history of Evaluation for Postop abnormality and alignm ent; [facility] COMPARISON: None. TECHNIQUE AND FINDINGS: Two views of the right knee. A total knee arthroplasty is in place, appears intact and normally align ed. No abnormal perihardware lucency or fracture. No significant malalignment. Posterior resurfacing changes of the patella with articular prosthesis. Soft tissues show no unexpected radiopaque foreign body. Some regional soft tissue gas is present, not unexpected postoperative. IMPRESSION: Status post placement of right total knee arthroplasty. No evidence of complication.
[2023-08-18] MEDS: LACTATED RINGERS 1,000 ML IV SCH (11:24)
[2023-08-18] MEDS: PANTOPRAZOLE 40 MG/10 ML VIAL IVP SCH (12:07)
[2023-08-18] MEDS: HYDROmorphone 0.5 MG/0.5 ML SYRINGE IVP PRN (14:07)
--- NOTE | 2023-08-18 14:18 | P.ANPRN ---
Procedure Note - Anesthesia - Nerve Block Performed Right Adductor Canal Infusion Time Out Performed: Yes (0659) Date of Procedure: 08/18/23 Procedure Start Time: 07:00 Procedure Stop Time: 07:05 Location of Patient: PreOp Indication: Acute Post-Operative Pain, Requested by Surgeon Specifically requested for management of pain by DrShelley: Alexy Cardoso Sedation Type: Sedate with meaningful contact maintained Preparation: Sterile Prep, Sterile Dressing Position: Supine Catheter Depth at Skin (cm): 8 Catheter: Indwelling Needle Types: Pajunk Needle Gauge: 21 Ultrasound used to visualize needle placement: Yes Ultrasound used to observe medication spread: Yes Injectate: 0.5% Ropivacaine (see comment for volume) (15cc + 10cc nacl pf) Blood Aspirated: No Pain Paresthesia on Injection Noted: No Resistance on Injection: Normal Image Stored and Saved: Yes Events: Uneventful and Well Tolerated
--- NOTE | 2023-08-18 14:19 | P.ANPRN ---
Procedure Note - Anesthesia - Nerve Block Performed Right iPack Single Time Out Performed: Yes (0659) Date of Procedure: 08/18/23 Procedure Start Time: : Procedure Stop Time: 07:10 Location of Patient: PreOp Indication: Acute Post-Operative Pain, Requested by Surgeon Specifically requested for management of pain by DrShelley: Alexy Cardoso Sedation Type: Sedate with meaningful contact maintained Preparation: Sterile Prep Position: Supine Catheter: None Needle Types: Pajunk Needle Gauge: 21 Ultrasound used to visualize needle placement: Yes Ultrasound used to observe medication spread: Yes Injectate: 0.5% Ropivacaine (see comment for volume) (15cc + 10cc nacl pf) Blood Aspirated: No Pain Paresthesia on Injection Noted: No Resistance on Injection: Normal Image Stored and Saved: Yes Events: Uneventful and Well Tolerated
[2023-08-18] MEDS: HYDROcodone/APAP 7.5-325MG 1 EACH TAB PO PRN ×2 (14:34→20:17)
--- NOTE | 2023-08-18 14:50 | P.CONS ---
History of Present Illness - Reason for Consult Consult date: 08/18/23 Medical management hypertension Requesting physician: Alexy Cardoso - Chief Complaint Right knee osteoarthritis, right total knee arthroplasty - History of Present Illness This is a 73-year-old female with past medical history significant for advanced osteoarthritis of right knee, failed conservative treatment, morbid obesity, hypertension and multiple other medical issues status post Right total knee arthroplasty. Tolerated procedure well. Pain controlled. Passing gas. Denies chest pain, palpitations or shortness of breath.. Vital signs stable, maintain ing O2 sats in the mid to high 90s on 2 L nasal cannula. Review of Systems Constitutional: Denied any fatigue denied any fever. Cardio vascular: denied any chest pain, palpitations Gastrointestinal denied any nausea vomiting Pulmonary: Denied any shortness of breath cough Neurologic denied any new focal deficits ROS Statement: Those systems with pertinent positive or pertinent negative responses have been documented in the HPI. ROS Other: All systems not noted in ROS Statement are negative. Past Medical History Past Medical History: Hypertension, Osteoarthritis (OA) Additional Past Medical History / Comment(s): Hx inner ear issues, Psoriaic arthritis, OA Rt knee. History of Any Multi-Drug Resistant Organisms: MRSA Year Discovered:: 07-06-23 MDRO Source:: NASAL Past Surgical History: Orthopedic Surgery Additional Past Surgical History / Comment(s): Bi lat cataracts removed, R arm, L ankle, ectopic Past Anesthesia/Blood Transfusion Reactions: No Reported Reaction, Motion Sickness Smoking Status: Never smoker - Past Family History Brother(s) Family Medical History: Cancer Additional Family Medical History / Comment(s): Brothers x2 lung ca. Sister(s) Family Medical History: Cancer Additional Family Medical History / Comment(s): lung cancer Medications and Allergies Home Medications Medication Instructions Recorded Confirmed Type amLODIPine [Norvasc] 5 mg PO HS 09/25/20 08/18/23 History Folic Acid 1 mg PO HS 08/15/23 08/18/23 History Ibuprofen [Advil] 200 mg PO Q8HR PRN 08/15/23 08/18/23 History metHOTREXate sodium 12.5 mg PO HANSON 08/15/23 08/18/23 History Allergies Allergy/AdvReac Type Severity Reaction Status Date / Time codeine Allergy Rash/Hives Verified 08/18/23 06:14 naproxen [From Naprosyn] Allergy "swelling" Verified 08/18/23 06:14 Sulfa (Sulfonamide Allergy Rash/Hives Verified 08/18/23 06:14 Antibiotics) sulfamethoxazole Allergy Rash/Hives Verified 08/18/23 06:14 [From Bactrim] trimethoprim [From Bactrim] Allergy Rash/Hives Verified 08/18/23 06:14 Physical Exam Vitals: Vital Signs Temp Pulse Pulse Resp BP Pulse Ox 08/18/23 11:17 72 16 129/64 96 08/18/23 11:06 68 16 130/63 99 08/18/23 10:35 69 16 113/52 97 08/18/23 10:20 75 16 94/38 92 L 08/18/23 10:05 72 16 116/51 98 08/18/23 09:50 68 16 103/46 96 08/18/23 09:35 61 16 117/52 100 08/18/23 09:20 98.9 F 68 16 109/57 99 08/18/23 07:15 59 L 15 94/52 97 08/18/23 06:24 97.8 F 67 16 148/72 95 Intake and Output 08/17/23 08/18/23 08/18/23 22:59 06:59 14:59 Intake Total 400 1101 Output Total 100 Balance 400 1001 Intake: IV 400 1101 Output: Estimated Blood Loss 100 Other: Weight 94.5 kg PHYSICAL EXAM: VITAL SIGNS: [As above] GENERAL: Alert and oriented x 3, sitting up in bed, no acute distress HEENT: Normocephalic ,conjunctivae normal. eyes normal. NECK: Supple no JVD. No thyroid enlargement. No LNs CARDIOVASCULAR: S1, S2 regular.. No murmur RESPIRATION: Breath sounds diminished in the bases. No rhonchi or crackles. No bronchial breathing. ABDOMEN: Soft, nontender . No guarding. no masses palpable. No ascites, No hepatosplenomegaly.Bowel sounds heard. LEGS: Right lower extremity dressing clean dry and intact, mild edema, no calf tenderness, positive DP pulse PSYCHIATRY: Alert and oriented X3, mood and affect normal. NERVOUS SYSTEM: Cranial N 2-12 grossly normal. No focal deficits. Strength and sensation grossly intact. Skin: Warm and dry, no rash Assessment and Plan Assessment: Right total knee arthroplasty secondary to advanced right knee osteoarthritis, failed conservative treatment Atelectasis, postoperative, expected outcome Acute hypoxic respiratory failure, postoperative secondary to the above. Morbid obesity, BMI 38 Hypertension Plan: Continue current medication regimen ,monitoring and symptomatic treatment. Pain management, DVT prophylaxis as per primary. Aggressive pulmonary toileting with incentive spirometer reinforced. Home meds have been reviewed and resumed accordingly. PT. Thank you for the consult. Follow-up with primary in 1 week postdischarge. The impression and plan of care has been dictated as directed. : I performed a history and examination of this patient, discussed the same with the dictator. I agree with the dictator's note ,documented as a scribe. Any additional findings or plans will be noted.
[2023-08-18] MEDS: FOLIC ACID 1 MG TAB PO SCH (20:18)
[2023-08-18] MEDS: amLODIPine 5 MG TAB PO SCH (20:18)
[2023-08-18] MEDS: SENNOSIDES-DOCUSATE SODIUM 1 EACH TAB PO SCH (20:18)
[2023-08-18] MEDS: ASPIRIN 81 MG PO SCH (20:18)
[2023-08-18] MEDS: traMADol 50 MG TAB PO PRN (22:15)
[2023-08-19 08:11] LABS: Basophils % (A) 0 %; Eosinophils % (A) 0 %; HCT 38.8 % (34.0-46.0); HGB 12.6 gm/dL (11.4-16.0); Lymphocytes # (A) 1.6 k/uL (1.0-4.8); Lymphocytes % (A) 8 %; MCH 33.4 pg (25.0-35.0); MCHC 32.6 g/dL (31.0-37.0); MCV 102.6 fL (80.0-100.0); Macrocytosis Slight; Mean Platelet Volume 9.7; Monocytes # (A) 1.2 k/uL (0-1.0); Monocytes % (A) 6 %; Neutrophils # (A) 17.4 k/uL (1.3-7.7); Neutrophils % (A) 84 %; Platelet Count 171 k/uL (150-450); RBC 3.79 m/uL (3.80-5.40); RDW 12.8 % (11.5-15.5); WBC 20.7 k/uL (3.8-10.6)
--- NOTE | 2023-08-19 08:40 | P.PN ---
Progress Note - Text Progress Note Date: 08/19/23 (9164) Anesthesiology Postop day 1 status post total knee arthroplasty with adductor canal catheter. Patient doing well. VAS 9 out of 10able to rest overnight. Gross strength intact in lower extremity. Afebrile. Denies alterations in sensorium. Catheter site intact. Heart regular rate Lungs nonlabored Abdomen nondistended Assessment: Postop day 1 status post total knee arthroplasty with adductor canal catheter Plan: 1.All questions answered. Maintain catheter 2 more days with patient removal at home. Instructions to be given at discharge. 2.This note was dictated using [employer] software. Please be advised there is a potential for misspellings or errors in photogrammetric engineer.
[2023-08-19] MEDS: MULTIVITAMINS, THERA 1 EACH TAB PO SCH (08:55)
--- NOTE | 2023-08-19 13:06 | P.PN ---
Subjective Progress Note Date: 08/19/23 - History of Present Illness 08/18/23 This is a 73-year-old female with past medical history significant for advanced osteoarthritis of right knee, failed conservative treatment, morbid obesity, hypertension and multiple other medical issues status post Right total knee arthroplasty. Tolerated procedure well. Pain controlled. Passing gas. Denies chest pain, palpitations or shortness of breath.. Vital signs stable, maintaining O2 sats in the mid to high 90s on 2 L nasal cannula. 08/19/2023 participated with PT, completed the stairs. Denies lightheadedness, dizziness or focal deficits. reports significant pain with nausea. Passing flatus. Denies chest pain, palpitations or shortness of breath. Afebrile, elevated WBC 20.7. Denies cough, congestion .O2 sat on room air currently being obtained. Objective - Vital Signs Vital signs: Vital Signs Temp 97.4 F L 08/19/23 08:00 Pulse 70 08/19/23 08:00 Resp 18 08/19/23 08:00 BP 114/71 08/19/23 08:00 Pulse Ox 94 L 08/19/23 02:00 FiO2 Intake & Output 08/18/23 08/19/23 08/19/23 18:59 06:59 18:59 Intake Total 1101 1250 Output Total 750 Balance 351 1250 Weight 94.5 kg Intake: IV 1101 Intake, IV Titration 1250 Amount Lactated Ringers 1,000 ml 1200 @ 100 mls/hr IV .Q10H KEVIN Rx#:[id number] ceFAZolin 2 gm In Sodium 50 Chloride 0.9% 50 ml @ 100 mls/hr IVPB Q8H KEVIN Rx#: [id number] Oral 0 Output: Urine 650 Estimated Blood Loss 100 Other: # Voids 1 2 1 - Exam PHYSICAL EXAM: VITAL SIGNS: [As above] GENERAL: Alert and oriented x 3, sitting up in bed, no acute distress HEENT: Normocephalic ,conjunctivae normal. eyes normal. NECK: Supple no JVD. CARDIOVASCULAR: S1, S2 regular. No murmur RESPIRATION: Unlabored, equal air entry, essentially clear to auscultation with bilateral bases diminished. ABDOMEN: Soft, nontender, nondistended.. No guarding. Positive bowel sounds. LEGS: Right lower extremity dressing clean dry and intact, mild edema, no calf tenderness, positive DP pulse PSYCHIATRY: Alert and oriented X3, mood and affect normal. NERVOUS SYSTEM: Cranial N 2-12 grossly normal. No focal deficits. Strength and sensation grossly intact. Skin: Warm and dry, no rash - Labs CBC & Chem 7: 08/19/23 06:43 Labs: Abnormal Lab Results - Last 24 Hours (Table) 08/19/23 Range/Units 06:43 WBC 20.7 H (3.8-10.6) k/uL RBC 3.79 L (3.80-5.40) m/uL MCV 102.6 H (80.0-100.0) fL Neutrophils # 17.4 H (1.3-7.7) k/uL Monocytes # 1.2 H (0-1.0) k/uL Assessment and Plan Assessment: Right total knee arthroplasty secondary to advanced right knee osteoarthritis, failed conservative treatment Atelectasis, postoperative, expected outcome Leukocytosis, suspect related to the above, ruling out acute UTI Acute hypoxic respiratory failure, postoperative secondary to the above. Morbid obesity, BMI 38 Hypertension Plan: Continue current medication regimen ,monitoring and symptomatic treatment. Pain management/ DVT prophylaxis as per primary. UA with micro ordered. aggressive pulmonary toileting with incentive spirometer reinforced. Home meds have been reviewed and resumed accordingly. PT. The impression and plan of care has been dictated as directed. : I performed a history and examination of this patient, discussed the same with the dictator. I agree with the dictator's note ,documented as a scribe. Any additional findings or plans will be noted.
--- NOTE | 2023-08-19 14:30 | P.PN ---
Subjective Progress Note Date: 08/19/23 Principal diagnosis: Right TKA Patient is seen at bedside this morning. She is postop day #1 from right total knee arthroplasty. She has pain at the surgical site as expected but denies any new complaints. She denies numbness, tingling or calf pain. Review of systems is negative for fever, chills, chest pain, shortness of breath or other Objective - Vital Signs Vital signs: Vital Signs Temp 98.7 F 08/19/23 14:00 Pulse 75 08/19/23 14:00 Resp 17 08/19/23 14:00 BP 124/67 08/19/23 14:00 Pulse Ox 93 L 08/19/23 14:00 FiO2 Intake & Output 08/18/23 08/19/23 08/19/23 18:59 06:59 18:59 Intake Total 1101 1250 Output Total 750 Balance 351 1250 Weight 94.5 kg Intake: IV 1101 Intake, IV Titration 1250 Amount Lactated Ringers 1,000 ml 1200 @ 100 mls/hr IV .Q10H KEVIN Rx#:[id number] ceFAZolin 2 gm In Sodium 50 Chloride 0.9% 50 ml @ 100 mls/hr IVPB Q8H KEVIN Rx#: [id number] Oral 0 Output: Urine 650 Estimated Blood Loss 100 Other: # Voids 1 2 1 - Exam Inspection reveals a benign surgical wound. There is no active bleeding or drainage. Neurovascular status is intact throughout the lower extremity with motor and sensation fully intact. Calf is soft and nontender. 2+ dorsalis pedis pulse and less than 2 second cap refill is present. - Constitutional General appearance: Present: no acute distress - Labs CBC & Chem 7: 08/19/23 06:43 Labs: Abnormal Lab Results - Last 24 Hours (Table) 08/19/23 Range/Units 06:43 WBC 20.7 H (3.8-10.6) k/uL RBC 3.79 L (3.80-5.40) m/uL MCV 102.6 H (80.0-100.0) fL Neutrophils # 17.4 H (1.3-7.7) k/uL Monocytes # 1.2 H (0-1.0) k/uL Assessment and Plan (1) Osteoarthritis of right knee Narrative/Plan: She will continue with routine postop orthopedic protocol including pain management, wound care, PT, DVT prophylaxis and medical management. Expect that she will transfer to home tomorrow Current Visit: Yes Status: Acute Priority: Medium Code(s): M17.11 - UNILATERAL PRIMARY OSTEOARTHRITIS, RIGHT KNEE SNOMED Code(s): 999983195552075 Time with Patient: Less than 30
[2023-08-19] MEDS ORDERED: ONDANSETRON 4 MG/2 ML VIAL IVP PRN (15:09)
[2023-08-19 15:41] LABS: Appearance,Urine Clear (Clear); Bilirubin,Urine Negative (Negative); Blood,Urine Negative (Negative); Color,Urine Colorless; Glucose,Urine (UA) Negative (Negative); Ketones,Urine Negative (Negative); Leukocyte Esterase,Urine Negative (Negative); Nitrite,Urine Negative (Negative); PH, Urine 5.5 (5.0-8.0); Protein,Urine Negative (Negative); Specific Gravity,Urine 1.008 (1.001-1.035); Urobilinogen,Urine <2.0 mg/dL (<2.0)
[2023-08-19] MEDS: traMADol 50 MG TAB PO PRN (17:43)
[2023-08-20 07:37] VITALS: BP 149/63; PULSE 83; RESP 17; TEMP 99.4
[2023-08-20 09:44] LABS: HGB 12.7 g/dL (12.0-15.0); MCH 33.2 pg (27.0-32.0); MCHC 31.8 g/dL (32.0-37.0); MCV 104.4 FL (80.0-97.0); Mean Platelet Volume 11.8 FL (9.5-12.2); NRBC Per 100 WBC 0 X 10*3/uL (0.00-0.01); Platelet Count 176 X 10*3/uL (140-440); RBC 3.83 X 10*6/uL (4.10-5.20); RDW 13.2 % (11.5-14.5); WBC 15.47 X 10*3/uL (4.50-10.00)
[2023-08-20 10:34] LABS: Blood Urea Nitrogen 10.4 mg/dL (9.0-27.0); Carbon Dioxide 28.1 mmol/L (21.6-31.8); Chloride 98 mmol/L (96-109); Glucose 111 mg/dL (70-110); Potassium 4.3 mmol/L (3.5-5.5); Sodium 136 mmol/L (135-145)
[2023-08-20 10:35] LABS: Calcium 8.9 mg/dL (8.7-10.3)
--- NOTE | 2023-08-20 11:12 | P.DS ---
Providers Date of admission: 08/19/23 12:54 Expected date of discharge: 08/20/23 Attending physician: Alexy Cardoso Consults: 08/18/23 07:17 Consult Physician Routine Consulting Provider: Kian Salgado Consult Reason/Comments: post op medical management Do you want consulting provider notified?: Yes Primary care physician: Kian Salgado - Discharge Diagnosis(es) (1) Osteoarthritis of right knee Patient was admitted to the OR on 08/18/2023 to undergo a right total knee arthroplasty. She had failed conservative measures as an outpatient and desired to proceed with elective surgery after given informed consent. She underwent the above procedure which she tolerated well without complication. Postoperative hospital course has remained without complication. On day of discharge she is afebrile, vital signs stable, labs within acceptable ranges, tolerating by mouth meds and diet, voiding without difficulty, positive flatus, denies abdominal pain or calf pain, pain is controlled on oral pain medication and has no new complaints. Wound is benign, neurovascular status is intact, calf is soft and nontender, abdomen soft and nontender. Review of systems is negative for numbness, tingling, fever, chills, chest pain, shortness of breath, nausea, vomiting, dizziness, headaches, slurred speech or other. Current Visit: Yes Status: Acute Priority: Medium Procedures: Right TKA Patient Condition at Discharge: Good Plan - Discharge Summary Discharge Rx Participant: No New Discharge Prescriptions: New Aspirin [Adult Low Dose Aspirin EC] 81 mg PO BID #60 tab Docusate [Colace] 100 mg PO BID #60 capsule Ondansetron [Zofran] 4 mg PO Q8HR PRN #21 tab PRN Reason: Nausea traMADol HCL 50 mg PO Q4HR PRN #42 tab PRN Reason: Pain No Action Ibuprofen [Advil] 200 mg PO Q8HR PRN PRN Reason: Pain amLODIPine [Norvasc] 5 mg PO HS Folic Acid 1 mg PO HS metHOTREXate sodium 12.5 mg PO HANSON Discharge Medication List amLODIPine [Norvasc] 5 mg PO HS 09/25/20 [History] Folic Acid 1 mg PO HS 08/15/23 [History] Ibuprofen [Advil] 200 mg PO Q8HR PRN 08/15/23 [History] metHOTREXate sodium 12.5 mg PO HANSON 08/15/23 [History] Aspirin [Adult Low Dose Aspirin EC] 81 mg PO BID #60 tab 08/20/23 [Rx] Docusate [Colace] 100 mg PO BID #60 capsule 08/20/23 [Rx] Ondansetron [Zofran] 4 mg PO Q8HR PRN #21 tab 08/20/23 [Rx] traMADol HCL 50 mg PO Q4HR PRN #42 tab 08/20/23 [Rx] Follow up Appointment(s)/Referral(s): [facility] [[facility]] - 1-2 Days ([facility] will call you to schedule your in home physical therapy visits. ) Alexy Cardoso MD [STAFF PHYSICIAN] - 10 Days Activity/Diet/Wound Care/Special Instructions: bear weight as tolerated f/u in office take meds as directed may shower in 3 days if no bleeding Discharge Disposition: HOME WITH HOME HEALTH SERVICES
--- NOTE | 2023-08-20 11:30 | P.PN ---
Subjective August 20, 2023: Patient was seen evaluated today. She is status post right total knee arthroplasty, postop day 2. She experienced severe nausea and pain yesterday was not ready for discharge. [employer] was not working for her and she was changed to tramadol. This morning she feels much better is much more active. She like to be discharged home to follow-up with home care. She had a leukocytosis of 20.7. Urinalysis was obtained which essentially normal. Repeat labs today are improved. Objective - Vital Signs Vital signs: Vital Signs Temp 99.4 F 08/20/23 07:25 Pulse 83 08/20/23 07:25 Resp 17 08/20/23 07:25 BP 149/63 08/20/23 07:25 Pulse Ox 92 L 08/20/23 07:25 FiO2 Intake & Output 08/19/23 08/20/23 08/20/23 18:59 06:59 18:59 Other: # Voids 1 3 - Exam General: The patient is awake and alert, in no distress, and does not appear acutely ill. Neck: The neck is supple, there is no thyromegaly, lymphadenopathy, tenderness or JVD. Cardiovascular: S1S2 is normal, There is a regular rate and rhythm. No murmur, rub or gallop is appreciated. Respiratory: Lungs are clear to auscultation bilaterally, respirations are non-labored, breath sounds are equal. Gastrointestinal: Soft, non-distended, non-tender abdomen without masses or organomegaly noted. There is no rebound or guarding present. Bowel sounds are unremarkable. Musculoskeletal: Jobst hose in place bilaterally, there is an ice pack and dressing to her right knee. No significant edema noted. Neurological: CN II-XII intact, there are no obvious motor or sensory deficits. Coordination appears grossly intact. Speech is normal. Skin: Skin is warm and dry and no rashes or lesions are noted. - Labs CBC & Chem 7: 08/20/23 05:50 08/20/23 05:50 Labs: Abnormal Lab Results - Last 24 Hours (Table) 08/20/23 08/20/23 Range/Units 05:50 05:50 WBC 15.47 H (4.50-10.00) X 10*3/uL RBC 3.83 L (4.10-5.20) X 10*6/uL MCV 104.4 H (80.0-97.0) FL MCH 33.2 H (27.0-32.0) pg MCHC 31.8 L (32.0-37.0) g/dL Glucose 111 H (70-110) mg/dL Assessment and Plan Plan: Right total knee arthroplasty secondary to advanced right knee osteoarthritis, failed conservative treatment Atelectasis, postoperative, expected outcome Leukocytosis, improving, most likely reactive Acute hypoxic respiratory failure, postoperative secondary to the above. Morbid obesity, BMI 38 Hypertension Patient is medically cleared for discharge at this time. She will follow-up in the office in the next several weeks for routine healthcare
[2023-08-20 11:38] LABS: Basophils # (A) 0.04 X 10*3/uL (0.00-0.10); Basophils % (A) 0.3 %; Eosinophils # (A) 0.05 X 10*3/uL (0.04-0.35); Eosinophils % (A) 0.3 %; Lymphocytes # (A) 1.82 X 10*3/uL (0.90-5.00); Lymphocytes % (A) 11.8 %; Monocytes # (A) 2.07 X 10*3/uL (0.20-1.00); Monocytes % (A) 13.4 %; Neutrophils # (A) 11.42 X 10*3/uL (1.80-7.70); Neutrophils % (A) 73.7 %; RBC Morphology Normal (Normal)
== END 2023-08-20 12:24 | disposition home health service (06) ==
LOC: OR 05:41 → 4SSUR 09:15 → OR 08-19 12:54
PROVIDERS: ADMIT Orthopaedic Surgery Sports Medicine; ATTEND Orthopaedic Surgery Sports Medicine
DX: M17.11 Unilateral primary osteoarthritis, right knee (principal); J95.821 Acute postprocedural respiratory failure; J98.11 Atelectasis; L40.50 Arthropathic psoriasis, unspecified; M06.9 Rheumatoid arthritis, unspecified; D72.829 Elevated white blood cell count, unspecified; I10 Essential (primary) hypertension; E66.01 Morbid (severe) obesity due to excess calories; Z68.38 Body mass index [BMI] 38.0-38.9, adult; Z79.631 Long term (current) use of antimetabolite agent; Z79.899 Other long term (current) drug therapy; Z88.1 Allergy status to other antibiotic agents; Z88.2 Allergy status to sulfonamides; Z88.5 Allergy status to narcotic agent; Z88.6 Allergy status to analgesic agent; Z91.048 Other nonmedicinal substance allergy status
CPT/HCPCS: 97116; 97161; 64999; 64448; 80048; 85025 ×2; 81003; 73560; 27447; G0378 ×2; C1776; C1713; C1751; J2250; J1100; J0690 ×2; J2405 ×2; J3010; J2795; J2704; C9113 ×3; J1170 ×2

== ENCOUNTER → 2024-05-07 | Outpatient (CLI) | payer MEDICARE ==
--- NOTE | 2024-05-07 15:26 | CT ---
EXAMINATION TYPE: CT brain wo con DATE OF EXAM: 05/07/2024 COMPARISON: None CLINICAL INDICATION: Female, 74 years old with history of R29.810 FACIAL WEAKNESS; PHH, facial droop CT DLP: 961 mGycm Automated exposure control for dose reduction was used. Findings: The ventricles, basal cisterns and sulci over convexities are mildly enlarged consistent with mildly generalized atrophy, appropriate for the patient's age. There is mild to moderate decreased density in the periventricular white matter consistent with chron ic ischemic white matter demyelination. There is no mass effect or shift of midline structures. There is no acute intra or extra-axial hemorrhage. The posterior fossa including the brainstem, fourth ventricle and cerebellopontine angles appear brandyn sly normal. The intraorbital contents appear normal symmetric Visualized paranasal sinuses and mastoid air cells are well aerated. Calvarium is intact. IMPRESSION: 1. Age appropriate senescent changes as described above. 2. No acute bleed or mass effect [facility], , 05/07/2024 3:24 PM
== END | disposition home or self-care (01) ==
LOC: RADCTMAIN 14:28
PROVIDERS: ATTEND Family Medicine
DX: G93.89 Other specified disorders of brain (principal); R29.810 Facial weakness
CPT/HCPCS: 70450